=== PATIENT | female | born 1955 | race Caucasian/White ===

== ENCOUNTER → 2016-09-24 | Outpatient (CLI) | payer MEDICAID ==
[~2016-09-24] MED LIST: ACETAMINOPHEN-H1 TA1 PO; LIPITOR10 MG PO; LORTAB 10/3251 TAB PO; NAPROSYN 500MG500 MG PO; NORCO 325 MG-101 TAB PO; XANAX 1MG TABLET1 MG PO
== END ==
LOC: LAB 12:19
DX: E78.5 Hyperlipidemia, unspecified (principal)